=== PATIENT | female | born 1950 | race Caucasian/White ===

== ENCOUNTER 2018-11-05 16:28 | Emergency (ER) | payer BC ==
[~2018-11-05] VITALS: Ht 160 cm; Wt 93.2 kg
[2018-11-05 16:36] VITALS: Ht 160 cm; Wt 93.2 kg
[2018-11-05] MEDS ORDERED: CYCLOBENZAPRINE10 MG PO (16:39)
[2018-11-05] MEDS ORDERED: TOPROL XL25 MG PO (16:39)
[2018-11-05] MEDS ORDERED: LEVOXYL25 MCG PO (16:40)
[2018-11-05] MEDS ORDERED: CELEXA10 MG PO (16:40)
[2018-11-05] MEDS ORDERED: BAYER CHEWABLE81 MG PO (16:40)
[2018-11-05] MEDS ORDERED: LISINOPRIL5 MG PO (16:41)
[2018-11-05 17:16] LABS: BASOPHILS 0.7 % (0-2); EOSINOPHILS 3.5 % (0-7); HEMATOCRIT 42.5 % (36.0-48.0); HEMOGLOBIN 14.2 g/dL (12-16); IMMATURE GRANULOCYTES 0.1 % (0-5); LYMPHOCYTES 23.1 % (15-50); MCH 28.2 pg (26.0-34.0); MCHC 33.4 g/dL (31.0-37.0); MCV 84.3 fL (80.0-100.0); MONOCYTES 12.3 % (2-11); NEUTROPHILS 60.3 % (40-80); PLATELET COUNT 213 10x3/uL (130-400); RBC 5.04 10x6/uL (4.00-5.40); RDW 14.5 % (11.5-14.5)
[2018-11-05 17:27] LABS: APTT 27.1 SECONDS (22.8-39.4); INR 1.06 (0.85-1.17); PROTIME 13.3 SECONDS (11.6-15.0)
[2018-11-05 17:49] LABS: ALBUMIN 3.6 g/dL (3.4-5.0); ANION GAP 12.1 mmol/L (8-16); BILIRUBIN - TOTAL 0.31 mg/dL (0.2-1.3); CARBON DIOXIDE 26.9 mmol/L (21.0-32.0); PROTEIN - SERUM 7.4 g/dL (6.4-8.2)
[2018-11-05 18:32] VITALS: BP 145/70
== END 2018-11-05 18:30 | disposition home or self-care (01) ==
LOC: D.ER 16:28
PROVIDERS: Family Medicine
DX: K92.2 Gastrointestinal hemorrhage, unspecified (principal)